=== PATIENT | female | born 1955 | race Caucasian/White ===

== ENCOUNTER 2017-06-22 08:27 | Emergency (ER) | payer BC ==
[~2017-06-22] VITALS: Ht 154.9 cm; Wt 83.8 kg
[~2017-06-22 08:27] MED LIST: APRESOLINE10 MG PO; DICYCLOMINE HCL20 MG PO; FLONASE16 G1 BOTH NARES; LEVOTHYROXINE100 MCG PO; LOSARTAN-HCTZ1 EAC1 PO; METFORMIN HCL1000 MG PO; METHENAMINE MAND1 GM PO; NEXIUM40 MG PO; TYLENOL REGULA325 MG PO; VITAMIN D-32000 UNI2 PO
[2017-06-22 09:26] LABS: BASOPHIL (%) 0.3 % (0-1); EOSINOPHIL (%) 2.4 % (0-5); EOSINOPHIL COUNT 0.2 K/uL (0-0.3); HEMATOCRIT 34.6 % (36.0-46.0); HEMOGLOBIN 11.3 G/DL (11.9-15.5); IMMATURE GRANULOCYTE (%) 0.6 % (0.0-0.7); LYMPHOCYTE (%) 13.9 % (15-42); LYMPHOCYTE COUNT 1.1 K/uL (1.0-2.8); MCHC 32.7 G/DL (30.0-36.0); MCV 82.8 FL (83-99); MONOCYTE (%) 7.3 % (3-12); MONOCYTE COUNT 0.6 K/uL (0-0.8); NEUTROPHIL (%) 75.5 % (45-76); PLATELET COUNT 182 K/uL (156-360); RBC DIS.WIDTH-SD 39.5 % (39-53); RED BLOOD COUNT 4.18 M/uL (3.80-5.20); WHITE BLOOD COUNT 7.9 K/uL (4.1-10.2)
[2017-06-22 09:39] LABS: CHLORIDE 98 mEq/L (99-109); POTASSIUM 4.3 mEq/L (3.7-5.4); SODIUM 134 mEq/L (136-147)
[2017-06-22 09:41] LABS: GLUCOSE 196 mg/dL (70-99)
[2017-06-22 09:45] LABS: CREATININE 0.8 mg/dL (0.6-1.3); GFR ESTIMATE (CALCULATED) > 59 mL/min/
[2017-06-22 09:46] LABS: UREA NITROGEN (BUN) 15 mg/dL (9-23)
[2017-06-22 09:50] LABS: TROP-I INTERPRETATION NEGATIVE; TROPONIN-I < 0.01 ng/mL (0.0-0.30)
[2017-06-22] MEDS ORDERED: PROVENTIL HFA6.7 GM IH (10:40)
[2017-06-22] MEDS ORDERED: PREDNISONE50 MG PO (10:40)
[2017-06-22 10:49] VITALS: BP 146/6
== END 2017-06-22 11:00 | disposition home or self-care (01) ==
LOC: EME 08:27
PROVIDERS: Emergency Medicine
DX: J20.9 Acute bronchitis, unspecified (principal); R06.2 Wheezing; E11.9 Type 2 diabetes mellitus without complications; Z79.84 Long term (current) use of oral hypoglycemic drugs; I10 Essential (primary) hypertension; K21.9 Gastro-esophageal reflux disease without esophagitis; Z88.8 Allergy status to other drugs, medicaments and biological substances
CPT/HCPCS: 71045; 80048; 84484; 85025; 93005; 94640; 99281; 99284